=== PATIENT | male | born 1980 | race Caucasian/White ===

== ENCOUNTER 2016-12-02 19:01 | Emergency (ER) | payer SELFPAY ==
[~2016-12-02] VITALS: Ht 185.4 cm; Wt 80.1 kg
[2016-12-02 19:04] VITALS: BP 160/94; PULSE 91; TEMP 36.9; O2SAT 99; Ht 185.4 cm; Wt 80.1 kg
[2016-12-02] MEDS ORDERED: IBUPROFEN 600 MG TAB PO STA (19:15)
[2016-12-02] MEDS ORDERED: DIPHTHERIA/TETANUS/PERTUSSIS 0.5 ML SYR/VIAL IM. ONE (19:15)
--- NOTE | 2016-12-02 19:49 | DIAGNOSTIC IMAGING REPORT ---
RIGHT WRIST MIN 3 VIEWS ROUTINE CLINICAL HISTORY: 36 years-old Male presenting with R wrist puncture wound, pain and swelling Right. TECHNIQUE: Frontal, bilateral oblique, and lateral views of the right wrist were obtained. COMPARISON: 06/26/2010. FINDINGS: No acute fracture or malalignment. No significant soft tissue swelling. At the site of clinical concern over the volar aspect of the right wrist, no gross soft tissue emphysema or subjacent osseous injury. IMPRESSION: Specifically at the site of clinical concern, no subjacent osseous injury. No other abnormality. Electronically signed by: Trav Mccarty M.D. 12/02/2016 7:48 PM Dictated Date/Time: 12/02/2016 7:46 PM
--- NOTE | 2016-12-04 12:15 | EMERGENCY ROOM VISIT NOTE ---
ED Visit Note First contact with patient: 19:09 Chief Complaint: A nail punctured my right wrist. History of Present Illness: Mr. Adams is a 36-year-old white male who ambulates into the ED complaining of a puncture wound to the anterior aspect of the right wrist. Patient reports approximately 10 hours ago he was working at his. He reports a nail that was in a piece of wood punctured the anterior aspect of the right wrist. At the time of the injury he controlled bleeding but did not wash the wound. When he came home. He showed his who encouraged him to come to the ED for further evaluation and care. Currently patient is complaining of a stinging and stabbing sensation in the anterior aspect of the right wrist at his puncture wound site. He describes his pain as a stinging sensation at rest and sharp with palpation. He does not rate his discomfort. Pain is nonradiating. His pain worsens with palpation, wrist flexion, radial and ulnar deviation. He has not identified any alleviating factors related to the pain. He has not taken any medication for pain prior to arrival at the hospital. Associated with his pain he reports immediately after the injury he had tingling of his fingertips which has subsequently resolved. He denies fevers, chills, sweats, hand weakness/numbness/tingling. Additionally he denies any previous significant injuries to the wrist or surgeries. Review of Systems: As noted above in history of present illness. Past Medical History: Status post appendectomy and unspecified left hand surgery. Current Medications: Patient denies. Allergies to Medications: Patient denies. Social History: Patient is currently employed; he feels safe in his home environment; he admits to tobacco and alcohol use. Tetanus Immunization Status: Patient is unsure and believes it is greater than 10 years. Physical Examination: Vital Signs: Date Time Temp Pulse Resp B/P (MAP) Pulse Ox O2 Delivery O2 Flow Rate FiO2 12/02/16 19:04 36.9 91 18 160/94 99 Room Air GENERAL: 36-year-old male in mild distress due to pain, nontoxic-appearing, afebrile and hemodynamically stable. NEUROLOGICAL: Awake, alert and oriented to person, place and time. Answering questions appropriately and following commands. Good hand eye coordination. SKIN: Warm, dry and pink. Right Wrist: Single puncture wound just lateral to the palmaris longus tendon. No active bleeding. Mild swelling in the area but no erythema. RIGHT UPPER EXTREMITY: No gross bony deformity. Soft tissue injury as noted above. Full range of motion in flexion and extension of the elbow, pronation and supination of forearm. Mild decreased range of motion predominantly with wrist flexion and ulnar deviation due to pain. No tenderness over the palmaris longus tendon proximal to the puncture wound. No lymphangitis in the area. Full range of motion in flexion and extension of all fingers. Throughout the hand the skin was warm and pink and capillary refill is brisk. He was able to distinguish light sensations through all dermatomes of the hand. ED Course: Patient is assessed as noted above. Patient's medication list was reviewed. Patient was given 600 mg of ibuprofen by mouth for pain and an Adacel booster IM. Right Wrist X-Rays: Were read by myself and the radiologist showing no acute fractures or dislocations. There was a point her on the puncture wound and the radiologist notes no soft tissue emphysema or osseous injury. I do not appreciate any foreign bodies. Patient's wounds were cleansed with antibacterial soap and water and covered with a bacitracin dressing. Patient was placed in a volar splint. Patient was educated about today's findings and instructed on his treatment plan ; he verbalizes understanding and agreement with this plan. Clinical Impression: Right wrist puncture wound. Decision-Making: Initially my differential diagnosis I considered tendon injury , foreign body, fracture, nerve injury and other causes. Disposition: Patient discharged home in stable condition; prior to departure he was reassessed and rated his discomfort 3/10. Plan: Comfort measures, wound care and signs of infection were discussed with the patient. Patient was encouraged to follow-up with his PCP or return to the ED for any signs of infection, uncontrolled pain, hand/finger weakness/numbness/tingling or any new/concerning symptoms.
== END 2016-12-02 20:17 | disposition home or self-care (01) ==
LOC: C.EDB 19:02 → C.EDD 20:17
DX: S61.531A Puncture wound without foreign body of right wrist, initial encounter (principal); W45.0XXA Nail entering through skin, initial encounter; Z72.0 Tobacco use; Z23 Encounter for immunization

== ENCOUNTER 2023-05-19 05:38 | Inpatient (IN) ==
[2023-05-19] MEDS: XYLOCAINE 1%/SOD BICARB 20 ML VIAL INFIL ONE (06:33)
--- NOTE | 2023-05-19 06:39 | XRay Report ---
XR knee RT 1 or 2V routine HISTORY: 42 years-old Male pain acute pain of the right knee COMPARISON: None TECHNIQUE: 2 views of the right knee FINDINGS: Large joint effusion. Mild circumferential soft tissue swelling. There is no acute fracture, dislocat ion, radiopaque foreign body or significant joint space narrowing. IMPRESSION: 1. No acute fracture or dislocation. 2. Large joint effusion. ACT 112: Negative or not required by law. The above report was generated using voice recognition software. It may contain grammatical, syntax o r spelling errors. Electronically signed by: Manjeet Hyde M.D. 05/19/2023 6:38 AM
--- NOTE | 2023-05-19 06:50 | Emergency Department Note ---
Impression & Plan Effusion of right knee joint, Arthritis, septic, knee ED Provider Note NAME: ELADIO THAKUR AGE: 42 SEX: M : 1980 ARRIVES VIA: Walk-In INFORMANT: Patient, ED PROVIDER(S): Omari Juan DO CHIEF COMPLAINT: Knee pain HPI: The patient is a 42-year-old male who presented to the emergency department for an evaluation of knee pain. 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 He states that this time the knee is swollen but appears to be worse than usual. He denies having any fever or rashes. He has no tick exposures as far as he knows. The patient's had no recent traveling or trauma that he remembers. The patient has not seen a provider prior to coming to the emergency department. ROS: See above HPI for pertinent positives & negatives. A total of 10 systems reviewed and were otherwise negative. PAST MEDICAL HISTORY: See Below PAST SURGICAL HISTORY: See Below FAMILY HISTORY: See Below SOCIAL HISTORY: See Below HOME MEDICATIONS: See Below ALLERGIES: See Below VITALS: See Below PHYSICAL EXAMINATION: GENERAL: The patient is awake and alert. He is very anxious and appears to be uncomfortable. EYES: The conjunctivae are clear. The pupils are round and reactive. EARS, NOSE, MOUTH AND THROAT: The nose is without any evidence of any deformity. NECK: The neck is nontender and supple. RESPIRATORY: Normal respiratory effort is noted there is no evidence of wheezing rhonchi or rales CARDIOVASCULAR: Regular rate and rhythm noted there no murmurs rubs or gallops normal S1 normal S2. GASTROINTESTINAL: The abdomen is soft. Abdomen is nontender. MUSCULOSKELETAL/EXTREMITIES: There is a very large effusion on the right knee. Range of motion is limited secondary to pain. There is no erythema or warmth overlying the joint. SKIN: There is no obvious evidence of any rash. There are no petechiae, pallor or cyanosis noted. NEUROLOGIC: Patient is awake alert and oriented x3 MEDICAL DECISION MAKING: The patient is a 42-year-old male who presented to the emergency department for an evaluation of swelling in his right knee. There is no erythema or significant warmth of the joint. The patient had no significant risk factors including IV drug abuse or recent infections. The patient had arthrocentesis. He was found to have a elevated white blood cell count peripherally as well as a very elevated WBC count in the synovial fluid. The patient was treated with pain medication as well as IV antibiotics. He was reevaluated multiple times. I discussed patient's laboratory and radiographic studies with him. I am concerned this represents a septic joint given the elevation of the white count in the synovial fluid although his Lyme screen was positive. 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 I discussed patient's condition with orthopedics. I discussed the patient's condition with him. The patient's family members were more insistent that the patient receive IV antibiotics for short period of time until this could be more elucidated to determine if this does represent a truly septic joint or sequelae from Lyme disease. I discussed patient's condition with the on-call [facility] group. They have agreed to evaluate the patient in the emergency department for further management and disposition. Triage Nursing notes reviewed. Prior medical records reviewed Vital Signs: reviewed and remarkable for elevated blood pressure. Differential diagnosis: Differential diagnosis could include trauma, ligamentous injury, bony injury, inflammatory process, gout, septic joint, inflammatory process such as osteoarthritis and other differential diagnoses were considered. ER treatment provided: See below Diagnostics interpreted by me: ECG: none Cardiac Monitoring: An order was placed for continuous cardiac monitoring. The monitor shows a rate of 81 bpm with sinus rhythm. Laboratory studies: As stated above and show below. Imaging studies: See below. Radiographic imaging was reviewed by myself Consultation(s): I discussed this case with Mohinder who is covering for Dr. Brandin Villalpando for orthopedics. I discussed his case with Dr. Ghotra. I discussed his case with Annie who is on-call for the [facility] group ED COURSE: Procedures: Right knee paracentesis. Indication: Right knee effusion I discussed the procedure with the patient. The patient verbally consented to the procedure. I discussed the benefits and risks including the ability to diagnose a septic joint. Using aseptic technique a Betadine field was set. The area superficially was anesthetized using 1 mL of 1% buffered lidocaine. Using an 18-gauge needle 60 mL of cloudy yellow synovial fluid was removed. A Band- Aid was placed. An Dylon wrap was placed. The patient tolerated procedure well. Past Med/Surg History Medical History No significant medical problems Surgical History H/O hand surgery Hx of appendectomy Family History Other No significant family history Social History Smoking Status: Current every day smoker Tobacco Type: Cigarettes Hx Alcohol Use: No Preferred Language: Estonian Feels Safe at Home: Yes Allergies Allergies Allergy/AdvReac Type Severity Reaction Status Date / Time No Known Allergies Allergy Unknown Verified 07/14/21 11:41 Home Meds Home Medications Medication Instructions Recorded Confirmed No Known Home Medications 05/19/23 05/19/23 Results & Data (ED) Vital Signs Vital Signs - 24 hr 05/19/23 05:38 05/19/23 05:43 Temperature 37.2 C Temperature Source Temporal Artery Scan Pulse Rate 81 Respiratory Rate 18 Respiratory Effort / Characteristics Non-Labored Spontaneous Non-Labored Spontaneous Respiratory Depth Normal Respiratory Pattern Regular Blood Pressure 153/101 H Blood Pressure Mean 118 Blood Pressure Position Sitting Pulse Oximetry 98 Sepsis Recent Fever Within 48 Hours No Sepsis New/Unexplained Change in Mental Status N/A Sepsis Action Taken by Nursing No Action Required Home Medications Current Medication List: was personally reviewed by me Laboratory Data Attestation: I reviewed the patient's lab results. 05/19/23 07:04 05/19/23 07:04 Lab Results 05/19/23 05/19/23 05/19/23 Range/Units 06:42 07:04 09:50 WBC 13.98 H (4.8-10.8) K/ul RBC 4.59 L (4.70-6.10) M/uL Hgb 14.3 (14.0-18.0) g/dl Hct 41.3 L (42.0-52.0) % MCV 90.0 (80.0-100.0) fL MCH 31.2 (25.0-34.0) pg MCHC 34.6 (32.0-36.0) g/dL RDW Std Deviation 44.7 (36.4-46.3) fL RDW Coeff of Ingrid 13.5 (11.5-14.5) % Plt Count 261 (130-400) K/uL MPV 10.0 (9.4-12.4) fL Immature Gran % (Auto) 0.7 % Neut % (Auto) 74.7 % Lymph % (Auto) 13.9 % [place] % (Auto) 10.1 % Eos % (Auto) 0.3 % Baso % (Auto) 0.3 % Neut # (Auto) 10.44 H (1.40-6.50) K/uL Lymph # (Auto) 1.95 (1.20-3.40) K/uL [place] # (Auto) 1.41 H (0.11-0.59) K/uL Eos # (Auto) 0.04 (0.00-0.50) K/uL Baso # (Auto) 0.04 (0.00-0.20) K/uL Immature Gran # (Auto) 0.10 (0.01-0.20) K/uL Sodium 133 L (136-145) mmol/L Potassium 4.2 (3.5-5.1) mmol/L Chloride 102 (98-107) mmol/L Carbon Dioxide 25 (21-32) mmol/L Anion Gap 6 (3-11) BUN 10 (6-23) mg/dl Creatinine 0.83 (0.6-1.4) mg/dl Est Cr Clr Drug Dosing Not Reportable Est GFR ( Amer) 124.9 ml/min Est GFR (Non-Af Amer) 107.8 ml/min BUN/Creatinine Ratio 12.0 (10-20) Glucose 113 H (70-99(Fasting)) mg/dl Lactate 0.9 (0.4-2.0) mmol/L Calcium 9.3 (8.6-10.3) mg/dl Total Bilirubin 0.6 (0.2-1.0) mg/dl AST 20 (13-39) U/L ALT 21 (7-52) U/L Alkaline Phosphatase 85 (34-104) U/L C-Reactive Protein 3.09 H (0-0.5) mg/dl Total Protein 7.4 (6.0-8.3) gm/dl Albumin 4.6 (3.4-5.0) gm/dl Globulin 2.8 (2.5-4.0) gm/dl Albumin/Globulin Ratio 1.6 (0.9-2) Procalcitonin < 0.02 (0-0.5) ng/ml Fluid Comment Synovial Source Knee Synovial Color Straw Synovial Appearance Turbid Synovial WBC (Auto) 954850 H (0-200) /ul Synovial RBC (Auto) < 2000 /uL Synovial Polynuclear % 93.2 % Synovial Mononuclear % 6.8 % Synovial Crystals Lyme Disease Screen Positive H (Negative) Lyme Disease IgG Ab Positive H (Negative) Lyme Disease IgM Ab Negative (Negative) Administered Medications Discontinued Medications Ceftriaxone Sodium (Rocephin) 2,000 mg in 50 mls @ 100 mls/hr IV NOW STA Stop: 05/19/23 09:51 Last Admin: 05/19/23 10:15 Dose: 100 mls/hr Documented By: GUILLERMO Ketorolac Tromethamine (Ketorolac Tromethamine 15 Mg/Ml Vial) 10 mg IV NOW ONE Stop: 05/19/23 09:39 Last Admin: 05/19/23 10:15 Dose: 10 mg Documented By: GUILLERMO Lidocaine HCl (Xylocaine 1%/Sod Bicarb 20 Ml Vial) 20 ml INFIL NOW ONE Stop: 05/19/23 06:30 Last Admin: 05/19/23 06:33 Dose: 20 ml Documented By: CHARMAINE Oxycodone HCl (Oxycodone Hcl Ir 5 Mg Tab (Immediate Release)) 5 mg PO NOW STA Stop: 05/19/23 06:42 Last Admin: 05/19/23 06:57 Dose: 5 mg Documented By: CAROLEE Imaging Data Attestation: I personally reviewed and interpreted this imaging study as follows: My Impression: X-ray of the right knee was obtained in the emergency department. My interpretation is right knee effusion, no definite fracture. Radiologist's Impression: Knee X-Ray 05/19/23 05:53 XR knee RT 1 or 2V routine HISTORY: 42 years-old Male pain acute pain of the right knee COMPARISON: None TECHNIQUE: 2 views of the right knee FINDINGS: Large joint effusion. Mild circumferential soft tissue swelling. There is no acute fracture, dislocation, radiopaque foreign body or significant joint space narrowing. IMPRESSION: 1. No acute fracture or dislocation. 2. Large joint effusion. ACT 112: Negative or not required by law. The above report was generated using voice recognition software. It may contain grammatical, syntax or spelling errors. Electronically signed by: Manjeet Hyde M.D. 05/19/2023 6:38 AM Discharge Plan Visit Data Chief Complaint: Knee Injury/Pain Stated Complaint: KNEE PAIN ED Provider: Omari Juan Discharge Problem: Effusion of right knee joint, Arthritis, septic, knee Patient Disposition: Being Evaluated by Hospitalist Forms Stand Alone Forms: [employer] Prescriptions Prescriptions: No Action No Known Home Medications Referrals Referrals: Jc Ellis MD [Primary Care Provider] - Discharge Problem: Arthritis, septic, knee Qualifiers: Septic arthritis organism: due to unspecified organism Laterality: right Q ualified Code(s): M00.9 - Pyogenic arthritis, unspecified
[2023-05-19] MEDS: oxyCODONE HCL IR 5 MG TAB (IMMEDIATE RELEASE) PO STA (06:57)
[2023-05-19 07:31] LABS: Basophils # (auto) 0.04 K/uL (0.00-0.20); Basophils % (auto) 0.3 %; Eosinophils # (auto) 0.04 K/uL (0.00-0.50); Eosinophils % (auto) 0.3 %; Hematocrit (blood only) 41.3 % (42.0-52.0); Hemoglobin 14.3 g/dl (14.0-18.0); Immature Granulocytes % (auto) 0.7 %; Lymphocytes # (auto) 1.95 K/uL (1.20-3.40); Lymphocytes % (auto) 13.9 %; Mean Corpuscular Hemoglobin 31.2 pg (25.0-34.0); Mean Corpuscular Hgb Conc 34.6 g/dL (32.0-36.0); Monocytes # (auto) 1.41 K/uL (0.11-0.59); Monocytes % (auto) 10.1 %; Neutrophils # (auto) 10.44 K/uL (1.40-6.50); Neutrophils % (auto) 74.7 %; Platelet Count 261 K/uL (130-400); RDW Coefficient of Variation 13.5 % (11.5-14.5); RDW Standard Deviation 44.7 fL (36.4-46.3); Red Blood Count 4.59 M/uL (4.70-6.10); White Blood Count 13.98 K/ul (4.8-10.8)
[2023-05-19 07:38] LABS: Alanine Aminotransferase 21 U/L (7-52); Albumin Globulin Ratio 1.6 (0.9-2); Albumin Level 4.6 gm/dl (3.4-5.0); Alkaline Phosphatase 85 U/L (34-104); Anion Gap 6 (3-11); Aspartate Aminotransferase 20 U/L (13-39); Bilirubin,Total 0.6 mg/dl (0.2-1.0); Blood Urea Nitrogen 10 mg/dl (6-23); C Reactive Protein 3.09 mg/dl (0-0.5); Calcium 9.3 mg/dl (8.6-10.3); Carbon Dioxide 25 mmol/L (21-32); Chloride 102 mmol/L (98-107); Est GFR (African American) 124.9 ml/min; Est GFR (Non-African American) 107.8 ml/min; Globulin 2.8 gm/dl (2.5-4.0); Glucose 113 mg/dl (70-99(Fasting)); Potassium 4.2 mmol/L (3.5-5.1); Sodium 133 mmol/L (136-145); Total Protein 7.4 gm/dl (6.0-8.3)
[2023-05-19 08:30] LABS: Procalcitonin < 0.02 ng/ml (0-0.5)
[2023-05-19 08:55] LABS: Lyme Screen Rflx Confirmation Positive (Negative)
[2023-05-19 09:21] LABS: Appearance Synovial Fluid Turbid; Color Synovial Fluid Straw; Mononuclear WBC Synovial 6.8 %; Polynuclear WBC Synovial 93.2 %; RBC Synovial Fluid Auto < 2000 /uL; Source Synovial Fluid Knee; WBC Synovial Fluid Auto 191840 /ul (0-200)
[2023-05-19] MEDS ORDERED: VANCOMYCIN CONSULT ACTIVE PRN ×2 (09:22→12:05)
[2023-05-19] MEDS ORDERED: VANCOMYCIN HCL 2,750 MG in SODIUM CHLORIDE 0.9% 500 ML IV ONE (09:22)
[2023-05-19] MEDS: cefTRIAXone SODIUM 2,000 MG/50 ML BAG IV STA (10:15)
[2023-05-19] MEDS: KETOROLAC TROMETHAMINE 15 MG/ML VIAL IV ONE (10:15)
[2023-05-19] MEDS: VANCOMYCIN HCL 2,000 MG in SODIUM CHLORIDE 0.9% 500 ML IV ONE (10:57)
[2023-05-19] MEDS: ACETAMINOPHEN 325 MG TAB PO PRN (12:21)
--- NOTE | 2023-05-19 12:44 | History & Physical Report ---
Date of Service May 19, 2023 Assessment & Plan (1) Effusion of right knee joint: Plan: Admit to [facility] Patient presenting from home with reports of right knee pain and swelling. No reported trauma, no history of surgical interventions. In the ED, afebrile, WBC 13K. Does not appear septic. s/p joint aspiration in ED - synovial WBC [id number], gram stain many polys, no organisms Lyme IgG positive, negative IgM; await Western Blot s/p Vanco and Ceftriaxone in the ED, continue with both follow cultures ortho consult DVT PROPHYLAXIS SCDs for now Patient seen in collaboration with Dr. Nicole. I spent a total of 60 minutes coordinating, documenting, and providing care for this patient excluding time spent in the performance of separately billed services. This included personally reviewing all current laboratories and imaging studies, medication reconciliation, outpatient chart review, and discussion with specialists. (2) Lyme arthritis of knee: History of Present Illness Chief Complaint: Right knee pain and swelling Primary Care Provider: Jc Ellis MD 42-year-old male with history of tobacco abuse and other problems listed below who presents to the ED for evaluation of right knee pain and swelling. History is obtained from the patient and review of outpatient PCP record. Patient reports he developed right knee pain yesterday and some mild swelling. This morning, patient reports significant worsening in the swelling and pain. 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 He denies any specific trauma to the knee. No prior surgical interventions of the knee. He denies fevers and chills. No chest pain or shortness of breath. Denies lightheadedness, dizziness, diaphoresis, syncopal events. No abdominal pain, nausea, vomiting, diarrhea. Denies urinary symptoms. In the ED, patient is afebrile, WBC 13.9 K. ED provider performed joint aspiration showing 191,840 synovial WBC. Lyme IgG positive, IgM negative. Patient was given IV ceftriaxone, IV ketorolac, oxycodone 5 mg, IV Vanco. Allergies Allergy/AdvReac Type Severity Reaction Status Date / Time No Known Allergies Allergy Unknown Verified 07/14/21 11:41 Home Medications Medication Instructions Recorded Confirmed Type No Known Home Medications 05/19/23 05/19/23 History Past Med/Surg History Medical History No significant medical problems Surgical History H/O hand surgery Hx of appendectomy Family History Other No significant family history Social History Smoking Status: Current every day smoker Tobacco Type: Cigarettes Cigarettes Per Day: 24-48; Second Hand Exposure: Yes; Do You Dip or Chew Tobacco: No; Hx Alcohol Use: Yes Alcohol type: beer Hx Substance Use: No Preferred Language: Citizen Of [place] Communication Ability: Effective Materials Inspector Required: No Beliefs That Will Affect Care: None Current Living Situation: Spouse Current Living Situation Comment: home with . Other Information That Helps Us Care for You: No Feels Safe at Home: Yes Safety Concerns: Feels Safe At This Time Assistive Devices: Crutches Physical Exam Physical Exam: please refer to Dr. Nicole's addendum for physical exam Results & Data Results & Data Vital Signs (Past 12 Hours) Vital Signs Temp Pulse Pulse Resp BP BP Pulse Ox 05/19/23 11:25 66 16 150/92 H 97 05/19/23 05:43 37.2 C 81 18 153/101 H 98 O2 Del Method 05/19/23 11:25 Room Air 05/19/23 05:43 Laboratory Results Short CBC 05/19/23 Range/Units 07:04 WBC 13.98 H (4.8-10.8) K/ul Hgb 14.3 (14.0-18.0) g/dl Hct 41.3 L (42.0-52.0) % Plt Count 261 (130-400) K/uL BMP 05/19/23 07:04 Sodium 133 L Potassium 4.2 Chloride 102 Carbon Dioxide 25 BUN 10 Creatinine 0.83 Glucose 113 H Calcium 9.3 Liver Function 05/19/23 Range/Units 07:04 Total Bilirubin 0.6 (0.2-1.0) mg/dl AST 20 (13-39) U/L ALT 21 (7-52) U/L Alkaline Phosphatase 85 (34-104) U/L Albumin 4.6 (3.4-5.0) gm/dl Diagnostic Findings Knee X-Ray 05/19/23 05:53 XR knee RT 1 or 2V routine HISTORY: 42 years-old Male pain acute pain of the right knee COMPARISON: None TECHNIQUE: 2 views of the right knee FINDINGS: Large joint effusion. Mild circumferential soft tissue swelling. There is no acute fracture, dislocation, radiopaque foreign body or significant joint space narrowing. IMPRESSION: 1. No acute fracture or dislocation. 2. Large joint effusion. ACT 112: Negative or not required by law. The above report was generated using voice recognition software. It may contain grammatical, syntax or spelling errors. Electronically signed by: Manjeet Hyde M.D. 05/19/2023 6:38 AM Supervising Physician Co-Signing Physician Notes I have seen and examined the patient and have discussed the case with the provider above. I have reviewed the advanced practitioner's documentation, and I agree with, and take responsibility for that plan of care. 42 yo M norma presents with acute right knee pain and swelling. 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 He incidentally has a round erythematous rash on his left neck that has no central raised area and has mentioned seeing various ticks on him at times. He reports never taking treatment for these bites because he didnt see a bullseye rash afterwards. Exam: VSS CONSTITUTIONAL: WNWD, vitals as above, generally well-appearing EYES: EOMI bilaterally, PERRL, normal conjuncttivae, no scleral icterus ENT: external ear and nose normal, oropharynx clear, MMM NECK: trachea midline RESPIRATORY: clear to auscultation bilaterally, no crackles, rales or wheezes, normal respiratory effort CARDIOVASCULAR: regular rate and rhythm, S1 and 2 heard without murmurs, gallops or rubs, no JVD, no peripheral edema, CHEST: inspection of chest was normal GASTROINTESTINAL: normal bowel sounds, soft, nontender, ND, no guarding MUSCULOSKELETAL: strength 5/5 throughout, head is normocephalic and atraumatic. R knee: restricted flexion/extension, DELISA wrap in place after joint aspiration, some residual effusion still present, generalized TTP of knee joint. Slight warmth to the joint. No overlying cellulitis. SKIN: warm and dry, circular, macular erythematous rash on left lateral neck, no surrounding LAD NEUROLOGIC: No facial palsy, no dysarthria. Touch, pain and proprioception normal. CN 2-12 grossly intact, no sensory deficit, normal cognition, normal speech, no tremor PSYCHIATRIC: alert cooperative and oriented to person, place and time. Euthymic mood, makes good eye contact, language grossly intact, recent and remote memory grossly intact. Lyme serology showing positive IGG with WB pending. He was started on Ceftriaxone for possible lyme arthritis. Synovial Lyme PCR pending. No crystals or evidence of orgs in synovial fluid. Ortho was consulted. No surgery recommended at this time. Will continue conservative management and monitor clinical response. DO Corey
[2023-05-19] MEDS: oxyCODONE HCL IR 5 MG TAB (IMMEDIATE RELEASE) PO PRN (13:48)
[2023-05-19] MEDS: NICOTINE 21 MG/24 HR TDSY TD SCH (14:36)
--- NOTE | 2023-05-19 14:45 | Pharmacy Report ---
Pharmacy PK ABX Note - Date of Service May 19, 2023 - Assessment and Plan Assessment * Mr Adams is a 42 year old M receiving vanc/ceftriaxone for treatment of R septic knee, Lyme. * Lyme IgG positive, IgM negative, western blot pending * Blood cx pending, synovial fluid cx pending Plan Vancomycin * Loading dose: 2000 mg IV x 1 * Maintenance dose: 1250 mg IV every 8 hours * Regimen is predicted to achieve target AUC/JAYDEN of 400-600 mg/L.hr * Will check a vanc level in 1-2 days if pt remains hospitalized and on vanc therapy. Suspect regimen will need to be decreased in 2-3 days once vanc reaches steady-state. Pharmacy will continue to follow and will adjust dose/frequency as necessary. Thank you. Pharmacy has transitioned to AUC monitoring for vancomycin. AUC/JAYDEN is the preferred PK/PD target and is associated with decreased risk of nephrotoxicity compared to traditional trough targets.
[2023-05-19] MEDS: VANCOMYCIN HCL 1,250 MG in SODIUM CHLORIDE 0.9% 250 ML IV SCH (17:36)
--- NOTE | 2023-05-19 17:57 | Orthopedic Consultation ---
Date of Service May 19, 2023 Assessment & Plan (1) Effusion of right knee joint: Discussed with the ER physician earlier today. Would recommend treatment for lyme disease at this time and await culture results from his knee aspiration today. Discussed with Dr. Ghotra and will continue to follow. History of Present Illness Reason for Consultation: . Requesting Physician: . Attending Physician: DO Tai Medina Trav is a 42 year old patient admitted with a right knee effusion, right knee pain. He states that he has had some intermittent symptoms in the past but yesterday had acute pain and swelling in the knee. No injury. No tick bites that he is aware of. Denies fever or feeling sick. His son is being treated for lyme disease now too. The ER aspirated his knee and it shows [id number] wbc and serology was positive for lyme IgG. Gram stain shows no organism and culture pending. ESR and crp are elevated. Allergies Allergy/AdvReac Type Severity Reaction Status Date / Time No Known Allergies Allergy Unknown Verified 07/14/21 11:41 Home Medications Medication Instructions Recorded Confirmed Type No Known Home Medications 05/19/23 05/19/23 History Past Med/Surg History Medical History No significant medical problems Surgical History H/O hand surgery Hx of appendectomy Family History Other No significant family history Social History Smoking Status: Current every day smoker Tobacco Type: Cigarettes Cigarettes Per Day: 24-48; Second Hand Exposure: Yes; Do You Dip or Chew Tobacco: No; Hx Alcohol Use: Yes Alcohol type: beer Hx Substance Use: No Preferred Language: Belarusian Communication Ability: Effective Nursing Home Director Required: No Beliefs That Will Affect Care: None Current Living Situation: Spouse Current Living Situation Comment: home with . Other Information That Helps Us Care for You: No Feels Safe at Home: Yes Safety Concerns: Feels Safe At This Time Assistive Devices: Crutches Review of Systems All systems reviewed & are unremarkable except as noted in HPI & below. Physical Exam .alert and oriented. NAD. Right knee: large knee effusion. able to do a straight leg raise. Motion is limited due to swelling. Range of motion near full extension to about 80 degrees of flexion. Results & Data Results & Data Laboratory Results . Diagnostic Findings . xray of the knee shows no fracture. Large knee effusion. PG Care Time/CCT Total # of Minutes Spent Total Time Spent with Patient: Total time spent is greater than 50% in coordination of care (as documented) at patient's floor/unit and/or counseling patient: Coding Level of Care Code 09071 IN/OBS CONSULT LVL 3,45M Diagnoses Effusion of right knee joint M25.461
[2023-05-20 06:51] LABS: Hematocrit (blood only) 40.5 % (42.0-52.0); Hemoglobin 14.5 g/dl (14.0-18.0); Mean Corpuscular Hemoglobin 31.7 pg (25.0-34.0); Mean Corpuscular Hgb Conc 35.8 g/dL (32.0-36.0); Mean Corpuscular Volume 88.4 fL (80.0-100.0); Mean Platelet Volume 9.9 fL (9.4-12.4); Platelet Count 257 K/uL (130-400); RDW Coefficient of Variation 13.7 % (11.5-14.5); RDW Standard Deviation 44.3 fL (36.4-46.3); Red Blood Count 4.58 M/uL (4.70-6.10); White Blood Count 10.77 K/ul (4.8-10.8)
[2023-05-20 07:37] LABS: BUN Creatinine Ratio 11.2 (10-20); Creatinine Clr Calc Pharmacy 120.9 ml/min; Est GFR (African American) 121.4 ml/min; Est GFR (Non-African American) 104.7 ml/min; Potassium 4.3 mmol/L (3.5-5.1)
[2023-05-20 08:34] LABS: A calco-baum cmplx NotReported Not Detected (NotDetected); Bact fragilis Not Reported Not Detected (NotDetected); Blood Culture Id Panel See PCR Comment (NotDetected); C auris Not Reported Not Detected (NotDetected); Calbicans Not Reported Not Detected (NotDetected); Candida glabrata Not Reported Not Detected (NotDetected); Candida krusei Not Reported Not Detected (NotDetected); Cneoformans/gatti Not Reported Not Detected (NotDetected); Cparapsilosis Not Reported Not Detected (NotDetected); E cloacae compx Not Reported Not Detected (NotDetected); Efaecalis Not Reported Not Detected (NotDetected); Efaecium Not Reported Not Detected (NotDetected); Enterobacterales Not Reported Not Detected (NotDetected); Escherichia coli Not Reported Not Detected (NotDetected); H influenzae Not Reported Not Detected (NotDetected); K aerogenes Not Reported Not Detected (NotDetected); Koxytoca Not Reported Not Detected (NotDetected); Kpneumoniae grp Not Reported Not Detected (NotDetected); Lmonocyt Not Reported Not Detected (NotDetected); N meningitidis Not Reported Not Detected (NotDetected); P aeruginosa Not Reported Not Detected (NotDetected); Proteus spp Not Reported Not Detected (NotDetected); Salmonella spp Not Reported Not Detected (NotDetected); Smarcescens Not Reported Not Detected (NotDetected); Staph lugdunensis Not Reported Not Detected (NotDetected); Staph spp. Not Reported DETECTED (NotDetected); Staphaureus Not Reported Not Detected (NotDetected); Staphepi Not Reported DETECTED (NotDetected); Staphylococcus spp. DETECTED (NotDetected); Stenmaltophilia Not Reported Not Detected (NotDetected); Strep agal(GrpB) Not Reported Not Detected (NotDetected); Strep pneum Not Reported Not Detected (NotDetected); Strep pyog (GrpA) Not Reported Not Detected (NotDetected); Strep spp Not Reported Not Detected (NotDetected); mecAC Resistant Gene Not Detected (NotDetected)
--- NOTE | 2023-05-20 08:43 | Surgery Progress Note ---
Date of Service May 20, 2023 Assessment & Plan (1) Lyme arthritis of knee: Plan: 42-year-old male with acute right knee pain discomfort and swelling most consistent with Lyme disease. His clinical exam is not consistent with a septic knee. He is much improved. I did offer to repeat aspiration today for comfort and he did denied this/refused. Once again, his exam does not consistent with a bacterial septic knee and most likely represents Lyme disease. Plan: We recommend management for Lyme disease including antibiotics. From my standpoint this can be done as an outpatient. Certainly the cultures need to be followed. If the bacterial culture shows something he might benefit from an irrigation and debridement. Based on exam today I think that unlikely. I did offer repeat aspiration but he deferred. I would recommend a course of anti-inflammatories maybe 5 days of Toradol followed by a regular dose of anti- inflammatories. Antibiotics for Lyme disease. He can follow-up with his medical doctor. If the culture show anything we may need to intervene. Any orthopedic quick questions can be direct al [phone]. There is no orthopedic restrictions from our standpoint at this time. (2) Effusion of right knee joint: Admission and Anticipated Discharge Date Admission Date: May 19, 2023 Subjective 42-year-old gentleman admitted with 1 to 2-day history of acute right knee swelling. He had an aspiration in the ER yesterday. He is feeling much better today. Denies any fevers. No known tick bites. No known rashes. Physical Exam Physical Exam: Physical examination was a pleasant middle-age male. He looks pretty comfortable this morning. Examination of the right knee reveals a fairly large knee effusion. He can bend his knee to 90 degrees without much pain. There is no real warmth just a swollen knee. He is got a good straight leg raise. There is no instability. He is neurologically intact. Large knee effusion but fairly minimal pain with knee motion. Results & Data Vital Signs (Past 12 Hours) Vital Signs Temp Pulse Resp BP Pulse Ox O2 Del Method 05/20/23 07:43 36.6 C 81 16 129/84 97 Room Air 05/20/23 07:10 Room Air Laboratory Results Gram stain reveals many polys but no organisms. Culture results are still pend ing. PG Care Time/CCT Total # of Minutes Spent Total Time Spent with Patient: Total time spent is greater than 50% in coordination of care (as documented) at patient's floor/unit and/or counseling patient: Coding Level of Care Code 17987 SUB INP/OBS CARE MIN Diagnoses Lyme arthritis of knee A69.23 Effusion of right knee joint M25.461
[2023-05-20 08:44] LABS: Staphylococcus epidermidis DETECTED (NotDetected)
[2023-05-20] MEDS: cefTRIAXone SODIUM 2,000 MG in DEXTROSE 5 % MINI-B 50 ML IV SCH (10:32)
[2023-05-20] MEDS: VANCOMYCIN HCL 1,500 MG in SODIUM CHLORIDE 0.9% 500 ML IV SCH (11:11)
--- NOTE | 2023-05-20 14:52 | Hospitalist Progress Note ---
Date of Service May 20, 2023 Assessment & Plan (1) Lyme arthritis of knee: Plan 42-year-old male with PMH of tobacco abuse presented to the ED 05/19 with complaint of right knee pain and swelling. 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 He underwent joint aspiration in the ED with elevated WBC count. He is being managed for the following: Right knee effusion Lyme arthritis of right knee Possible Lyme disease Patient came in with right knee pain and swelling. No reported trauma or recent surgical intervention. Patient works as a green. Denied fever at presentation. Status post synovitic fluid tap 05/19, elevated WBC. No crystals seen. Serum WBC at presentation was mildly elevated, procalcitonin was negative. Lyme screen positive, will send Western blot test. Patient was started on ceftriaxone, continue. Pain management with anti-inflammatories. Gram-positive bacteria and blood: 1 of 4 bottles of blood culture from 05/19 came back positive for GPC. Patient was started on vancomycin, continue. ID consult, repeat blood culture tomorrow a.m., wait for 05/19 culture to finalize to rule out contaminant versus infection. If true infection will get echo. Will continue vancomycin and monitoring in the hospital for the time being. DVT PROPHYLAXIS: SCDs for now Full code Updated pt's over the phone, answered all her questions to her satisfaction. she voiced understanding and was agreeable to plan of care. Admission and Anticipated Discharge Date Admission Date: May 19, 2023 Subjective Patient was seen and examined at bedside as a follow-up of right knee effusion, Lyme screen positive, concern of blood infection. Patient was sitting up in bed, on room air, upset because he wants to be discharged. He states that he has to pay several of his monthly installments and he cannot sit here in the hospital and wait, and not get discharged as he has to earn and support his family. I explained to him and updated him on his current condition. He is aware about his right knee condition. He is also aware about his Lyme screen being positive and needing treatment. I made him aware that his one of the 4 blood culture came back positive for gram-positive cocci and we need to wait until we can determine if it is contaminant versus infection. I also updated him that if it is infection we need further tests like echo. I also updated him that we will be needing repeat blood culture tomorrow and ID evaluation as a part of workup for gram-positive bacteremia. He remained upset and angry throughout the bedside conversation. I tried to explain him as much as possible so that he can understand why he needs to be in the hospital. He finally agreed to stay. Physical Exam Physical Exam: GENERAL: Alert and oriented x3. on RA. Angry, Upset. HEENT: No pallor, no icterus. Pupils equal, round and reactive to light. Oral mucosa moist. NECK: No JVD, no neck masses. HEART: S1 and S2 heard. Regular rate and rhythm. No murmur, no gallop. RESPIRATORY SYSTEM: Normal AP diameter. No accessory muscle use. No wheezing, no crackles. ABDOMEN: Soft, bowel sounds present, nontender, no distention. CENTRAL NERVOUS SYSTEM: No facial droop. Speech is clear. Obeys simple commands. Moves extremities. EXTREMITIES: No edema, no erythema seen. Rt knee w/ clean dressing w/o soakage. Results & Data Results & Data Vital Signs (Past 12 Hours) Vital Signs Temp Pulse Resp BP Pulse Ox O2 Del Method 05/20/23 14:31 36.5 C 76 16 145/90 H 94 Room Air 05/20/23 07:43 36.6 C 81 16 129/84 97 Room Air 05/20/23 07:10 Room Air
[2023-05-21 07:22] LABS: Hemoglobin 15.1 g/dl (14.0-18.0); Mean Corpuscular Hemoglobin 31.5 pg (25.0-34.0); Mean Corpuscular Volume 87.5 fL (80.0-100.0); Mean Platelet Volume 9.6 fL (9.4-12.4); Platelet Count 276 K/uL (130-400); RDW Coefficient of Variation 13.4 % (11.5-14.5); RDW Standard Deviation 43.1 fL (36.4-46.3)
--- NOTE | 2023-05-21 07:29 | Surgery Progress Note ---
Date of Service May 21, 2023 Assessment & Plan (1) Lyme arthritis of knee: Plan: 42-year-old male admitted with right knee effusion consistent with Lyme arthritis. He is much improved after aspiration and management. Cultures been no growth to date on the knee. He had 1 blood culture which is positive which I think most likely is a contaminant. His knee exam is not consistent with a septic joint. Plan/recommendation: From an orthopedic standpoint this is most consistent with Lyme arthritis. I recommend he be treated for that. This can be done as an outpatient. It be reasonable to wait for the culture results from today to come back. If it does grow out bacteria that would be warranted or at least indicated for an arthroscopic irrigation debridement. Once again I think that unlikely. We can also off all his cultures as an outpatient. I once again offered aspiration of his knee today but he declined. He will need follow-up by his local doctor as an outpatient. Any orthopedic questions can be directed at [phone] (2) Effusion of right knee joint: Admission and Anticipated Discharge Date Admission Date: May 19, 2023 Subjective 42-year-old gentleman admitted with a right acute knee swelling and effusion. Current diagnoses Lyme disease. His knees feel much better.Still fairly swollen but much better. He is able to get around reasonably well. He is fairly agitated this morning as he was not allowed to go down and get some fresh air and sounds like I was interested in trying to smoke up. He states he does not want to be in the hospital. No new complaints. Physical Exam Physical Exam: Physical examination of the right knee reveals moderate to large knee joint effusion. There is no redness or warmth to it. Is got good knee motion with about is 0 to about 110 limited by the effusion. He is neurologically intact Results & Data Vital Signs (Past 12 Hours) Vital Signs Temp Pulse Resp BP Pulse Ox O2 Del Method 05/21/23 07:08 36.5 C 75 18 173/92 H 95 Room Air 05/20/23 21:06 36.9 C 89 18 151/98 H 95 Room Air Laboratory Results Knee aspirate cultures reveals no growth to date. He did have 1 blood culture which grew some staph. PG Care Time/CCT Total # of Minutes Spent Total Time Spent with Patient: Total time spent is greater than 50% in coordination of care (as documented) at patient's floor/unit and/or counseling patient: Coding Level of Care Code 19254 SUB INP/OBS CARE 05/04MIN Diagnoses Lyme arthritis of knee A69.23 Effusion of right knee joint M25.461
[2023-05-21 07:43] LABS: BUN Creatinine Ratio 16.9 (10-20); Calcium 9.3 mg/dl (8.6-10.3); Creatinine Clr Calc Pharmacy 129.7 ml/min; Est GFR (African American) 124.9 ml/min; Est GFR (Non-African American) 107.8 ml/min; Magnesium 2.1 mg/dl (1.7-2.4); Phosphorus 3.7 mg/dl (2.5-4.9); Potassium 4.1 mmol/L (3.5-5.1)
--- NOTE | 2023-05-21 10:36 | Pharmacy Report ---
Pharmacy PK ABX Note - Date of Service May 21, 2023 - Assessment and Plan Assessment 05/21: * Continues on vanc/ceftriaxone. Day # 3 vancomycin. Renal function stable. Blood cultures (+) CoNS in 04/13 (biofire - methicillin sensitive Staph epi). Joint fluid culture NGTD. 05/19: * Mr Adams is a 42 year old M receiving vanc/ceftriaxone for treatment of R septic knee, Lyme. * Lyme IgG positive, IgM negative, western blot pending * Blood cx pending, synovial fluid cx pending Plan Vancomycin * Current regimen: Vanc 1500mg IV q12h * Random level this AM, 12mcg/mL (~9 hr level). Predicted to achieve ssAUC 438mg/L.hr- therapeutic. * Continue vanc 1500mg IV q12h. * Will check a vanc level in 1-2 days if pt remains hospitalized and on vanc therapy Pharmacy will continue to follow and will adjust dose/frequency as necessary. Thank you. Pharmacy has transitioned to AUC monitoring for vancomycin. AUC/JAYDEN is the preferred PK/PD target and is associated with decreased risk of nephrotoxicity compared to traditional trough targets.
--- NOTE | 2023-05-21 12:01 | Discharge Summary ---
Date of Service May 21, 2023 Admission HPI Per Admitting Provider 42-year-old male with history of tobacco abuse and other problems listed below who presents to the ED for evaluation of right knee pain and swelling. History is obtained from the patient and review of outpatient PCP record. Patient reports he developed right knee pain yesterday and some mild swelling. This morning, patient reports significant worsening in the swelling and pain. 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 He denies any specific trauma to the knee. No prior surgical interventions of the knee. He denies fevers and chills. No chest pain or shortness of breath. Denies lightheadedness, dizziness, diaphoresis, syncopal events. No abdominal pain, nausea, vomiting, diarrhea. Denies urinary symptoms. In the ED, patient is afebrile, WBC 13.9 K. ED provider performed joint aspiration showing 191,840 synovial WBC. Lyme IgG positive, IgM negative. Patient was given IV ceftriaxone, IV ketorolac, oxycodone 5 mg, IV Vanco. Admission Exam Per Admitting Provider Exam: VSS CONSTITUTIONAL: WNWD, vitals as above, generally well-appearing EYES: EOMI bilaterally, PERRL, normal conjuncttivae, no scleral icterus ENT: external ear and nose normal, oropharynx clear, MMM NECK: trachea midline RESPIRATORY: clear to auscultation bilaterally, no crackles, rales or wheezes, normal respiratory effort CARDIOVASCULAR: regular rate and rhythm, S1 and 2 heard without murmurs, gallops or rubs, no JVD, no peripheral edema, CHEST: inspection of chest was normal GASTROINTESTINAL: normal bowel sounds, soft, nontender, ND, no guarding MUSCULOSKELETAL: strength 5/5 throughout, head is normocephalic and atraumatic. R knee: restricted flexion/extension, DELISA wrap in place after joint aspiration, some residual effusion still present, generalized TTP of knee joint. Slight warmth to the joint. No overlying cellulitis. SKIN: warm and dry, circular, macular erythematous rash on left lateral neck, no surrounding LAD NEUROLOGIC: No facial palsy, no dysarthria. Touch, pain and proprioception normal. CN 2-12 grossly intact, no sensory deficit, normal cognition, normal speech, no tremor PSYCHIATRIC: alert cooperative and oriented to person, place and time. Euthymic mood, makes good eye contact, language grossly intact, recent and remote memory grossly intact. Principal Diagnosis Right knee effusion Lyme arthritis of right knee Possible gram-positive bacteremia versus contaminant Discharge Exam GENERAL: Alert and oriented x3. on RA. HEENT: No pallor, no icterus. Pupils equal, round and reactive to light. Oral mucosa moist. NECK: No JVD, no neck masses. HEART: S1 and S2 heard. Regular rate and rhythm. No murmur, no gallop. RESPIRATORY SYSTEM: Normal AP diameter. No accessory muscle use. No wheezing, no crackles. ABDOMEN: Soft, bowel sounds present, nontender, no distention. CENTRAL NERVOUS SYSTEM: No facial droop. Speech is clear. Obeys simple commands. Moves extremities. EXTREMITIES: No edema, no erythema seen. Rt knee w/ clean dressing w/o soakage. ROM rt knee not painful. Discharge Data Allergies Allergy/AdvReac Type Severity Reaction Status Date / Time No Known Allergies Allergy Unknown Verified 07/14/21 11:41 Consultations 05/19/23 10:11 ED Decision to Admit Stat 05/19/23 12:05 Consult Orthopedic Surgery Routine 05/20/23 09:06 Consult Infectious Diseases Routine Hospital Course (1) Lyme arthritis of knee: Plan 42-year-old male with PMH of tobacco abuse presented to the ED 05/19 with complaint of right knee pain and swelling. 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 He underwent joint aspiration in the ED with elevated WBC count. He was managed for the following: Right knee effusion Lyme arthritis of right knee Possible Lyme disease Patient came in with right knee pain and swelling. No reported trauma or recent surgical intervention. Patient works as a green. Denied fever at presentation. Status post synovitic fluid tap 05/19, elevated WBC. No crystals seen. Serum WBC at presentation was mildly elevated, procalcitonin was negative. Lyme screen positive, pending Western blot test. Patient was started on ceftriaxone, to doxy on DC to complete 28 day therapy for lyme arthritis Pain management with anti-inflammatories. Pepcid while on ibuprofen. D/w ID 05/21/23 -though very high WBC in the synovial fluid, since 1 of 4 bottles came back positive for cons not lugdunensis it is less likely the reason for his arthritis and less likely it is true blood infection. Recommended patient to closely follow-up with PCP upon discharge. Discussed with patient in detail, ideally we would like the repeat blood culture to be negative and prove the current bl cl is a contaminant before discharging him, but the patient was so much adamant that he wants to go home today, patient understand the risks if it is a true infection, patient states that he will follow-up with PCP in the next 3 days and follow-up on the final results of these tests and if needed he will come back to the hospital. But he would like to go home today regardless or else he will sign AMA. Gram-positive bacteria and blood: 1 of 4 bottles of blood culture from 05/19 came back positive for GPC. Patient was started on vancomycin, continue. ID consult, repeat blood culture tomorrow a.m., wait for 05/19 culture to finalize to rule out contaminant versus infection. If true infection will get echo. Will continue vancomycin and monitoring in the hospital for the time being. Same has been explained to the patient. further Mx as above. DVT PROPHYLAXIS: SCDs for now Full code Updated pt's 05/20 over the phone, answered all her questions to her satisfaction. she voiced understanding and was agreeable to plan of care. Patient is being discharged with following instruction at the point of discharge: Follow-up with your primary care physician within a week time and likely you will need labs CBC/CMP/magnesium/phosphorus. As discussed at the bedside, it is very important that you set up visit with your PCP in 3-4 days time and follow-up on the results on your joint fluid and blood cultures. If your blood culture/joint fluid culture come back positive for infection, you will need to return to the hospital for inpatient treatment. Follow-up with orthopedics in 2 to 4 weeks time upon discharge. You will be discharged on antibiotic to complete 28 days therapy for Lyme arthritis. You will be discharged on ibuprofen 400 mg 3 times a day to be taken with meals, initially take as scheduled for 3 to 5 days and then as needed upto three times a day. Take Pepcid once a day as long as you are taking ibuprofen. Take your medications as prescribed. Please make sure that you are able to get your medications today by calling your pharmacy before you leave the hospital so that your treatment continuity is not broken. Home Health Attestation I certify that this patient is under my care and that I, or a physicians political science research assistant working with me, had a face to-face encounter that meets the home health [id number] encounter requirements with this patient. The encounter with the patient was in whole, or in part, for the following medical condition, which is the primary reason for home health care (list medical condition): I certify that, based on my findings, the following services are medically necessary home health services: My clinical findings support the need for the above services because: Further, I certify that my clinical findings support that this patient is homebound (i.e. absences from home require considerable and taxing effort and are for medical reasons or orthodox services or infrequently or of short duration when for other reasons) because: Certification for Home Health Services: Based on the above findings, I certify that this patient is confined to the home and needs intermittent prison care, physical therapy and/or speech therapy or continues to need occupational therapy. The patient is under my care, and I have initiated the establishment of the plan of care. This patient will be followed by a physician who will periodically review the plan of care. Total Time Total Time Spent Total Time Spent (In Minutes): 45 Discharge Plan Discharge Items Patient Disposition: Home - Self-Care Reason For Visit: RIGHT SEPTIC KNEE Discharge Diagnosis: Right knee effusion Lyme arthritis of right knee Possible gram-positive bacteremia versus contaminant Activity: Resume your previous activity Non-emergency contact: Primary Care Provider Call non-emergency contact if: you have any medication questions, your symptoms worsen and your temperature is above 101.5 Follow-up/Referrals: Jc Ellis MD [Primary Care Provider] - Diet: Regular Addtl Attending Provider Instructions: Follow-up with your primary care physician within a week time and likely you will need labs CBC/CMP/magnesium/phosphorus. As discussed at the bedside, it is very important that you set up visit with your PCP in 3-4 days time and follow-up on the results on your joint fluid and blood cultures. If your blood culture/joint fluid culture come back positive for infection, you will need to return to the hospital for inpatient treatment. Follow-up with orthopedics in 2 to 4 weeks time upon discharge. You will be discharged on antibiotic to complete 28 days therapy for Lyme arthritis. You will be discharged on ibuprofen 400 mg 3 times a day to be taken with meals, initially take as scheduled for 3 to 5 days and then as needed upto three times a day. Take Pepcid once a day as long as you are taking ibuprofen. Take your medications as prescribed. Please make sure that you are able to get your medications today by calling your pharmacy before you leave the hospital so that your treatment continuity is not broken. Pending Studies at Discharge: Yes (joint and blood culture) Stand-Alone Forms: My [facility], Smoking Cessation Medications and DC Order Prescriptions: New nicotine [Nicoderm CQ] 21 mg/24 hr Patch 24 Hour 21 mg transdermal QAM Qty: 28 0RF doxycycline hyclate 100 mg tablet 100 mg PO BID 26 Days Qty: 52 0RF Probiotic 3 billion cell capsule 3,000 mmu cells PO DAILY 28 Days Qty: 28 0RF Rx Instructions: administer with a meal ibuprofen 400 mg tablet 400 mg PO UD 15 Days Qty: 45 0RF Rx Instructions: take 1 tab scheduled upto three times a day for 3-5 days, then take as needed upto three times a day. famotidine [Pepcid] 20 mg tablet 20 mg PO DAILY 28 Days Qty: 28 0RF Rx Instructions: take once a day as long as your are taking ibuprofen prescribed to you. Discharge Orders: Discharge Order (Routine); Ordered 05/21/23 Ordered By: Kwan Patel Admission Data Admit Date/Time: 05/19/23 10:37 Attending Provider: Kwan Patel Admit Provider: Aura Nicole Primary Care Provider: Jc Ellis Other Providers: Aura Nicole; Hernandez Ghotra; Meng Barnard; Madie Pathak; Jossue Ghotra I.; Jason Cabrera II; Brianna Calzada; Gigi Shah; Fausto Love; Debby Jensen; Jack Gtz; Dominic Del Rio
[2023-05-24 00:21] LABS: Lyme DNA PCR CSF or Synovial Detected (Not Detected); Lyme DNA Source SYNOVIAL FLUID
[2023-05-24 07:57] LABS: 18KDIGG Band REACTIVE; 23KDIGG Band NON-REACTIVE; 23KDIGM Band REACTIVE; 28KDIGG Band NON-REACTIVE; 30KDIGG Band REACTIVE; 39KDIGG Band REACTIVE; 39KDIGM Band NON-REACTIVE; 41KDIGG Band REACTIVE; 41KDIGM Band NON-REACTIVE; 45KDIGG Band REACTIVE; 58KDIGG Band REACTIVE; 66KDIGG Band REACTIVE; 93KDIGG Band NON-REACTIVE; Lyme Antibodies, WB IgG POSITIVE (NEGATIVE); Lyme Antibodies, WB IgM NEGATIVE (NEGATIVE)
== END 2023-05-21 13:13 | disposition home or self-care (01) | DRG 868 ==
LOC: ED 05:38 → 3N 10:37 → SUATTDRO 10:37 → 3N 12:04